=== PATIENT | male | born 2000 | race Hispanic/Latino ===

== ENCOUNTER 2020-01-07 07:19 | Outpatient (CLI) | payer BC, OTHER ==
[2020-01-08 13:10] LABS: SARS-CoV-2 MS2 Positive; SARS-CoV-2 N Gene Negative; SARS-CoV-2 S Gene Negative; SARS-CoV-2 orf1ab Negative
== END 2020-01-07 07:20 | disposition home or self-care (01) ==
LOC: LABBT 07:19
PROVIDERS: ATTEND Specialist
DX: Z01.812 Encounter for preprocedural laboratory examination (principal); Z11.59 Encounter for screening for other viral diseases; J35.1 Hypertrophy of tonsils; J34.3 Hypertrophy of nasal turbinates; G47.33 Obstructive sleep apnea (adult) (pediatric); R06.83 Snoring
CPT/HCPCS: 87635; U0003

== ENCOUNTER 2020-01-10 06:40 | Day surgery (SDC) | payer BC ==
[2020-01-04 10:02] VITALS: BMI 38.8
[2020-01-10] MEDS ORDERED: Morphine 10 MG/ML VIAL ONE (08:32)
[2020-01-10] MEDS ORDERED: Fentanyl 250 MCG/5 ML VIAL ONE (08:32)
[2020-01-10] MEDS ORDERED: Lidocaine 1% w/Epinephrine 1:100K 20 ML VIAL ONE (08:33)
[2020-01-10] MEDS ORDERED: Ferric Subsulfate (ASTRINGYN) 8 ML VIAL ONE (08:33)
[2020-01-10] MEDS ORDERED: AFRIN NASAL MIST 15 ML BOT ONE (08:33)
[2020-01-10] MEDS ORDERED: Acetaminophen 500 MG TAB ONE ×2 (08:43→08:50)
[2020-01-10] MEDS ORDERED: Midazolam HCl 2 mg/2 ml Vial ONE (08:43)
[2020-01-10] MEDS ORDERED: Fentanyl 100 MCG/2 ML VIAL ONE ×2 (10:02→10:31)
[2020-01-10] MEDS ORDERED: hydrALAZINE 20 MG/ML VIAL ONE (10:11)
[2020-01-10] MEDS ORDERED: Morphine 2 MG/ML SYRINGE ONE ×2 (11:01→11:40)
--- NOTE | 2020-01-10 12:52 | OP ---
DATE OF PROCEDURE: 01/10/2020 PREOPERATIVE DIAGNOSES: 1. Obstructive sleep apnea. 2. Obstructive uvular hypertrophy. 3. Obstructive hypertrophic inferior turbinates. POSTOPERATIVE DIAGNOSES: 1. Obstructive sleep apnea. 2. Obstructive uvular hypertrophy. 3. Obstructive hypertrophic inferior turbinates. PROCEDURES PERFORMED: 1. Bilateral nasal endoscopy with submucosal resection of inferior turbinates. 2. Tonsillectomy over 12 years ago of age. 3. Uvulectomy. DESCRIPTION OF PROCEDURE: BILATERAL NASAL ENDOSCOPY WITH SUBMUCOSAL RESECTION OF INFERIOR TURBINATES: After consent was obtained, the patient was identified, brought to the operating room, and placed on the operating room table in the supine position. Consent was obtained, notifying the patient of the possibility of additional infections, bleeding, brain injury, and eye/orbital injury. The patient was placed on the operating room table, and general endotracheal anesthesia and intravenous access was obtained. The patient was then positioned, prepped and draped for endoscopic sinus surgery. Nasal preparation included trimming nasal vestibular hairs and spraying in topical Afrin. We then placed Afrin topical solution on nasal pledgets and strategically located them intranasally. The perinasal mucosa was injected with 1% lidocaine with 1:100,000 epinephrine in the submucoperichondrial plane of the septum, lateral nasal wall, and anterior to the uncinate. The patient was then prepped and draped in a sterile fashion and positioned for endoscopic sinus surgery. With the 0-degree endoscope, the patient underwent systematic nasal endoscopy. There were no suspicious internasal masses or lesions identified. We then focused our attention to the osteomeatal complex region under the middle turbinate. The inferior turbinates were visualized with a 0 degree endoscope and outfractured with a Sedan elevator. The inferior medial aspect was cauterized with the electrocautery. Hemostasis was obtained . After adequate airway was established, we turned our attention to the contralateral side and used a similar procedure. Again, a Sedan elevator was used to outfracture inferior turbinates under endoscopic visualization. With a suction cautery, the free inferior medial aspect was cauterized under direct visualization along the length of the inferior turbinate. At this point, we then turned our attention to the contralateral side and proceeded with endoscopic sinus surgery. At the completion of the case, Rice keel splints were placed in the ethmoid cavities after the ethmoidectomy. There were no complications. The patient tolerated the procedure well and was discharged to the recovery room in stable condition prior to return to the preoperative day stay with ultimate discharge home. Prescriptions for pain medication and antibiotics were provided. The patient received intramuscular Depo-Medrol during the case. TONSILLECTOMY OVER 12 YEARS AGO OF AGE: After consent was obtained, the patient was identified, brought to the operating room, and placed on the operating table in the supine position. General endotracheal anesthesia and intravenous access were obtained and we proceeded with positioning the patient for oropharyngeal surgery. Oropharyngeal exposure was obtained with a Clive-Theron mouth gag after a head drape was placed and secured with a towel clip. The Clive-Therno mouth gag was then suspended from the Marc tray and palatal elevation was achieved with a red rubber catheter. The right tonsil was addressed first. We used a curved Allis to grasp the tonsil and retract it medially as an anterior pillar incision was made with a #12 blade. The retrotonsillar fascial plane was then established and blunt dissection was performed with the suction cautery. Blood vessels were anticipated, identified, and cauterized as they were encountered. Ultimately, dissection was carried to the posterior tonsillar pillar mucosa which was incised hemostatically, as well as the base of tongue connection. The tonsil was then passed off as a specimen and bleeding points within the tonsillar bed were cauterized under direct visualization. We subsequently turned our attention to the contralateral side, where using a similar technique, a near identical procedure was performed. Again, the tonsil was grasped and retracted medially with a curved Allis as an anterior pillar incision was made with a #12 blade. The retrotonsillar fascial plane was established and while the anterior pillar was retracted medially, the hemostatic blunt dissection of the tonsil with a suction cautery was performed with blood vessels anticipated, identified, and cauterized as they were encountered. Again, dissection continued to the base of tongue and posterior tonsillar pillar mucosa which was incised in a hemostatic fashion. The tonsillar beds were then carefully inspected and bleeding points were identified and cauterized with a suction cautery. After this portion of the procedure, hemostasis was completely obtained. The patient's oral cavity was copiously irrigated with iced saline and subsequently suctioned. We then used the red rubber catheter to suction the gastric contents and the patient was subsequently aroused, awakened, and extubated without difficulty and transported to the recovery room in stable condition. There were no complications. UVULECTOMY: The uvula was then grasped and retracted inferiorly as vertical incisions were made on either side of the insertion of the uvula into the soft palate. A crescentic portion of soft palate was then removed on each side of the relaxing incision, and the uvula was transected at the site where it normally would have interfaced with the soft palate. The anterior and posterior aspect of the wound were then reapproximated with interrupted chromic sutures. The patient was then awakened, extubated, and transferred to recovery where patient remained in stable condition prior to discharge home. Job ID: [id number]
[2020-01-10] MEDS ORDERED: PROPOFOL 200 MG/20 ML VIAL ONE (14:31)
[2020-01-10] MEDS ORDERED: Labetalol HCl 100 MG/20 ML VIAL ONE (14:31)
[2020-01-10] MEDS ORDERED: Glycopyrrolate 0.2 MG/ML 5 ML SYRINGE ONE (14:31)
[2020-01-10] MEDS ORDERED: Rocuronium Bromide 10 MG/ML (10ML VIAL) ONE (14:31)
[2020-01-10] MEDS ORDERED: Dexamethasone 20 MG/5 ML VIAL ONE (14:31)
[2020-01-10] MEDS ORDERED: Ondansetron PF 4 MG/2 ML Vial ONE (14:31)
[2020-01-10] MEDS ORDERED: Lidocaine 1% PF 5 ML VIAL ONE (14:31)
== END 2020-01-10 12:25 | disposition home or self-care (01) ==
LOC: SDC 06:40
PROVIDERS: ATTEND Specialist
PROC: 0CTNXZZ Resection of Uvula, External Approach (ICD-10-PCS; principal; 2020-01-10)
PROC: 0CTPXZZ Resection of Tonsils, External Approach (ICD-10-PCS; principal; 2020-01-10)
PROC: 09TL8ZZ Resection of Nasal Turbinate, Via Natural or Artificial Opening Endoscopic (ICD-10-PCS; principal; 2020-01-10)
DX: J34.3 Hypertrophy of nasal turbinates (principal); J03.91 Acute recurrent tonsillitis, unspecified; G47.33 Obstructive sleep apnea (adult) (pediatric); K13.79 Other lesions of oral mucosa; F41.9 Anxiety disorder, unspecified; E66.01 Morbid (severe) obesity due to excess calories; Z68.38 Body mass index [BMI] 38.0-38.9, adult; Z79.899 Other long term (current) drug therapy; Z88.0 Allergy status to penicillin
CPT/HCPCS: 88302; 88304; J0360; J1100; J2001; J2250; J2270; J2405; J2704; J3010

== ENCOUNTER 2020-01-16 18:18 | Emergency (ER) | payer BC ==
[~2020-01-16 18:18] MED LIST: Dexamethasone 20 MG/5 ML VIAL ONE; Lidocaine 1% PF 5 ML VIAL ONE; Ondansetron PF 4 MG/2 ML Vial ONE; PROPOFOL 200 MG/20 ML VIAL ONE; Rocuronium Bromide 10 MG/ML (10ML VIAL) ONE; Succinylcholine Chloride 20 MG/ML 10 ml SYRINGE FS ONE
[2020-01-16 18:48] LABS: #Eosinphils 0.2 thou/uL (0.0-0.7); #Lymphocytes 2.9 thou/uL (1.20-3.40); #Monocytes 0.8 thou/uL (0.11-0.59); #Neutrophils 8.7 thou/uL (1.40-6.50); %Basophils 0.3 % (0.0-1.0); %Eosinophils 1.4 % (0.0-10.0); %Lymphocytes 23.2 % (28.0-48.0); %Neutrophils 69.2 % (31.0-61.0); Hemoglobin 16.5 g/dL (14.0-18.0); Mean Corpuscular HGB CONC 33.7 g/dL (32.0-36.0); Mean Corpuscular Hemoglobin 28.4 pg (25.0-35.0); Mean Corpuscular Volume 84.4 fL (78.0-98.0); Mean Platelet Volume 7.5 fL (7.4-10.4); Platelet Count 378 thou/uL (130-400); RBC Distribution Width 13.6 % (11.5-14.5); White Blood Cell (WBC) Count 12.6 thou/uL (4.8-10.8)
[2020-01-16] MEDS ORDERED: Fentanyl 100 MCG/2 ML VIAL ONE (19:03)
[2020-01-16 19:12] LABS: ALT (SGPT) 74 U/L (8-55); AST (SGOT) 40 U/L (5-34); Albumin 4.6 g/dL (3.5-5.0); Alkaline Phosphatase 98 U/L (50-130); Anion Gap 16 mmol/L (10-20); BUN (Urea Nitrogen) 13 mg/dL (8.9-20.6); Bilirubin, Total 0.5 mg/dL (0.2-1.2); Calc. Creatinine Clearance 0 mL/min (70-130); Calcium 10.2 mg/dL (7.8-10.44); Carbon Dioxide 23 mmol/L (22-29); Chloride 107 mmol/L (98-107); Estimated GFR-MDRD Greater than 90; Globulin 4.3 g/dL (2.4-3.5); Glucose 112 mg/dL (70-105); Potassium 3.7 mmol/L (3.5-5.1); Protein, Total 8.9 g/dL (6.0-8.3); Sodium 142 mmol/L (136-145)
[2020-01-16] MEDS ORDERED: Ferric Subsulfate (ASTRINGYN) 8 ML VIAL ONE (19:42)
[2020-01-16] MEDS ORDERED: SUGAMMADEX SODIUM 500 MG/5 ML VIAL ONE (20:11)
[2020-01-16] MEDS ORDERED: Labetalol HCl 100 MG/20 ML VIAL ONE (20:30)
[2020-01-16] MEDS ORDERED: HYDROcodone/Acetaminophen 5/325 mg Tablet ONE (20:57)
--- NOTE | 2020-01-17 02:18 | HP ---
CHIEF COMPLAINT: Post tonsil bleeding. BRIEF HISTORY: This is a 19-year-old gentleman, who is approximately seven days postop from tonsillectomy and adenoidectomy. He had bleeding that started earlier this morning. He has been gargling ice water today and has had a fairly constant ooze. He presented to the emergency room fairly tachycardic with bright red blood from the mouth. Anesthesia was notified and in the emergency room. PHYSICAL EXAMINATION: GENERAL: The patient is resting comfortably in bed. HEENT: The bleeding is currently stopped, although he does have fresh red blood in a bag. Voice is clear. No trismus. Oropharynx shows a blood clots present in the tonsil fossa bilaterally. LUNGS: Clear to auscultation bilaterally. HEART: Regular rate and rhythm without murmur. EXTREMITIES: No clubbing, cyanosis, or edema. ASSESSMENT: Post tonsillectomy hemorrhage. PLAN: Return to the emergency room and control of hemorrhage. Job ID: [id number]
--- NOTE | 2020-01-17 14:37 | OP ---
DATE OF PROCEDURE: 01/16/2020 PREOPERATIVE DIAGNOSIS: Post tonsillectomy hemorrhage. POSTOPERATIVE DIAGNOSIS: Post tonsillectomy hemorrhage. PROCEDURES PERFORMED: Exam under anesthesia and control of post tonsillectomy hemorrhage. ESTIMATED BLOOD LOSS: 0 mL. COMPLICATIONS: None. ANESTHESIA: GETA. DESCRIPTION OF PROCEDURE: The patient was taken to the operating room, placed supine on the table. General endotracheal anesthesia was obtained by the anesthesia staff. Clive-Theron mouth gag was then introduced. Actively bleeding vessel was seen in the mid pole of the tonsil bilaterally, which was cauterized using a suction Bovie. Following this, the oral cavity was irrigated. Valsalva was performed. There was no further bleeding. An orogastric tube was used to suction gastric contents. The patient tolerated the procedure well and was taken to recovery room in stable condition. Job ID: [id number]
== END 2020-01-16 19:42 | disposition admitted as inpatient to this hospital (09) ==
LOC: ERS 18:18
DX: K91.840 Postprocedural hemorrhage of a digestive system organ or structure following a digestive system procedure (principal); F43.10 Post-traumatic stress disorder, unspecified; Z79.899 Other long term (current) drug therapy
CPT/HCPCS: 36415; 80053; 85025; 86850; 86900; 86901; 96360; J1100; J2001; J2405; J2704; J3010

== ENCOUNTER 2021-03-31 18:00 | Outpatient (CLI) | payer BC | END 2021-03-31 18:01 | disposition home or self-care (01) | LOC: SLEEPLAB 18:00 | PROVIDERS: ATTEND Internal Medicine | DX: G47.33 Obstructive sleep apnea (adult) (pediatric) (principal); R53.83 Other fatigue; R06.83 Snoring; R41.9 Unspecified symptoms and signs involving cognitive functions and awareness; G47.00 Insomnia, unspecified; E66.9 Obesity, unspecified; Z68.42 Body mass index [BMI] 45.0-49.9, adult | CPT/HCPCS: 95806 ==